=== PATIENT | female | born 1980 | race Two or more races ===

== ENCOUNTER → 2024-11-25 | Outpatient (CLI) | payer MEDICAID, SELFPAY ==
--- NOTE | 2024-11-25 17:00 | XR_ITS ---
Examination: MRI pelvis with intravenous contrast. MRI of pelvis without intravenous contrast. Date and time of exam: November 25, 2024, 1800 hours INDICATIONS: History abdominal pain beginning August 2024 Technique: Multiple axial, sagittal and coronal sections of the pelvis obtained. Transverse images, TR 6020, TE 107. T1 weighted transverse images, TR 582, TE 9.5. T2-weighted sagittal images, TR 4000, TE 105. T2-weighted sagittal images, TR 4000, TE 5. Coronal images, TR 4210, TE 107. Axial and coronal images are obtained post 15 cc intravenous injection, gadolinium. Findings: Uterus not visualized Left ovarian 24 mm simple cyst which does not show abnormal enhancement on the postcontrast images Ovaries are not visualized No free fluid in the pelvis Contractured urinary bladder Homogeneous marrow signal IMPRESSION: 24 mm left ovarian simple cyst
== END | disposition home or self-care (01) ==
PROVIDERS: PCP Nurse Practitioner Family; Referring Provider Nurse Practitioner Family; Visit Provider Nurse Practitioner Family
DX: N83.292 Other ovarian cyst, left side (principal)
CPT/HCPCS: 72197; A9579